=== PATIENT | male | born 1960 | race Caucasian/White ===

== ENCOUNTER 2018-09-02 11:58 | Inpatient (IN) | payer OTHER, MEDICAID ==
[~2018-09-02] VITALS: Ht 91.4 cm; Wt 70.3 kg
--- NOTE | 2018-09-02 12:19 | NUR ---
pt in restroom
[2018-09-02 12:30] VITALS: BP 135/82
--- NOTE | 2018-09-02 12:40 | NUR ---
C/O PRESSURE WOUND TO L BUTTOCKS SINCE JULY THAT HASN'T GOTTEN BETTER. CAREGIVER SEEKING A 2ND OPINION. PT DENIES N/V/D/FEVER. AAOX4 WITH EVEN AND STEADY GAIT; LUNGS CLEAR BL; HR EVEN AND REGULAR; VSS; PATIENT POSITIONED LATERALLLY ON R SIDE FOR COMFORT; BEDRAILS UP X1; BED DOWN. ER MD MADE AWARE OF PT STATUS.
--- NOTE | 2018-09-02 13:15 | NUR ---
URINE COLLECTED AND SENT TO LAB
--- NOTE | 2018-09-02 13:20 | NUR ---
ERMD AT BEDSIDE
--- NOTE | 2018-09-02 14:04 | NUR ---
IDA PARAFFIN MACHINE OPERATOR NURSE STATED THAT WOUND IS LEVEL 3 AND OUTER EDGES ARE UNSTAGEABLE, DRESSING BEING OBTAINED BY WOUND NURSE AT THIS TIME.
--- NOTE | 2018-09-02 14:28 | NUR ---
WOUND PICTURES TAKEN AT THIS TIME
[2018-09-02 14:31] LABS: BASOPHILS # (AUTO) 0.1 K/uL (0.00-0.22); BASOPHILS % (AUTO) 0.6 % (0.0-2.0); EOSINOPHILS # (AUTO) 0.1 K/uL (0-0.4); EOSINOPHILS % (AUTO) 1.1 % (0.0-4.0); HEMATOCRIT 42.5 % (36-52); HEMOGLOBIN 14.7 g/dL (12.0-18.0); LYMPHOCYTES % (AUTO) 12.1 % (20.5-51.1); MEAN CORPUSCULAR HEMOGLOBIN 31 pg (27-31); MEAN CORPUSCULAR HGB CONC 35 g/dL (33-37); MEAN CORPUSCULAR VOLUME 88.5 fL (80-94); MONOCYTES # (AUTO) 0.8 K/uL (0.8-1.0); MONOCYTES % (AUTO) 9.8 % (1.7-9.3); NEUTROPHILS # (AUTO) 6.6 K/uL (1.8-7.7); NEUTROPHILS % (AUTO) 76.4 % (42.2-75.2); PLATELET COUNT (AUTO) 391 K/uL (140-450); RED CELL DISTRIBUTION WIDTH 13.3 % (11.6-13.7); WHITE BLOOD COUNT (AUTO) 8.6 K/uL (4.8-10.8)
[2018-09-02 14:40] LABS: ANION GAP 8.6 (8-16); CARBON DIOXIDE 28.6 mmol/L (21-32); CREATININE 0.5 mg/dL (0.7-1.3); POTASSIUM 4.2 mmol/L (3.5-5.1)
--- NOTE | 2018-09-02 14:48 | NUR ---
9828 RECEIVED A CALL FROM JERARDO RITCHIE PATIENT'S JEWELRY POLISHER AT [facility] PHONE [phone] AND CELL [phone]. PER JERARDO SHE IS HAVING A CLIENT BROUGHT TO THE ED FOR EVALUATION OF A WOUND TO SEE WHAT STAGE THE WOUND IS AT THE [facility] THEY CANNOT HAVE CLIENTS WITH GREATER THAN A STAGE 2 AND PER THE EXECUTIVE SALES MANAGER AT THE FACILITY PATIENTS WOUND IS SUPERFICIAL. INFORMATION ENDORSED TO DR PUGH EDMD. 6550 SPOKE WITH IDA WOUND CARE NURSE AND SHE CONFIRMED THAT PATIENT'S WOUND IS A STAGE 3. INFORMED JERARDO THAT PT'S WOUND IS STAGE 3 AND SHE STATED THAT PATIENT CANNOT GO BACK TO [facility] AND WILL NEED TO GO TO SNF FOR WOUND CARE AND THAT SHE IS REQUESTING [facility]. JERARDO ALSO REQUESTED THAT HER INFORMATION SHOULD BE ON CHART PRIMARY SOURCE OF CONTACT AND NOT PRISONFOOTWEAR MACHINERY INSTRUCTOR BETI. SPOKE WITH DR PUGH AND INFORMED HIM THAT [facility] CANNOT TAKE PATIENT BACK AT THIS TIME.
[2018-09-02 14:49] LABS: ALBUMIN 3.4 g/dL (3.4-5.0); TOTAL BILIRUBIN 0.2 mg/dL (0.0-1.0)
[2018-09-02] MEDS ORDERED: ACETAMINOPHEN 325 MG TAB PO PRN (14:50)
[2018-09-02] MEDS ORDERED: LORazepam 2 MG/ML VIAL IM/IVP PRN (14:50)
[2018-09-02] MEDS ORDERED: DOCUSATE SODIUM 100 MG GELCAP PO PRN (14:50)
[2018-09-02] MEDS ORDERED: ONDANSETRON 4 MG/2 ML VIAL IM/IVP PRN (14:50)
[2018-09-02] MEDS ORDERED: MORPHINE SULFATE 2 MG/ML SYR IVP PRN (14:50)
[2018-09-02] MEDS ORDERED: HYDROcodone/APAP 5/325 MG 1 TAB TAB PO PRN (14:50)
--- NOTE | 2018-09-02 15:30 | NUR ---
Patient will be admitted to care of DR FINK . Admited to MS. Will go to room 115. Belongings list completed. Report to
[2018-09-02 15:47] LABS: MAGNESIUM 2.6 mg/dL (1.8-2.4); PHOSPHORUS 3.6 mg/dL (2.5-4.9); THYROID STIMULATING HORMONE 1.68 uIU/mL (0.34-3.74)
[2018-09-02 15:54] LABS: PROTHROMBIN TIME 10.4 secs (10.8-13.4)
--- NOTE | 2018-09-02 16:00 | NUR ---
PATIENT ARRIVED ON UNIT VIA GURNEY. NO DISTRESS NOTED. DENIES ANY PAIN. AAOX4, CALM, COOPERATIVE. RESPIRATIONS EVEN, UNLABORED, ON ROOM AIR. HAS STAGE III PRESSURE ULCER, DRESSING IS DRY AND INTACT. HAS LEFT ABD URETEROSTOMY IN PLACE, DRAINING CLOUDY URINE, WITH STRONG ODOR. BUE CONTRACTURES NOTED. REVIEWED PLAN OF CARE WITH PATIENT. PATIENT VERBALIZED UNDERSTANDING. ORIENTED PATIENT TO ROOM AND CALL LIGHT. SAFETY MEASURES IN PLACE, CALL LIGHT WITHIN REACH. WILL CONTINUE TO MONITOR.
[2018-09-02 16:15] VITALS: BP 138/77
[2018-09-02] MEDS ORDERED: ASCO-786 PO (16:33)
[2018-09-02] MEDS ORDERED: MONT10TA35 PO (16:33)
[2018-09-02] MEDS ORDERED: BISA-213 RC (16:33)
[2018-09-02] MEDS ORDERED: AZEL137S8 NS (16:33)
[2018-09-02] MEDS ORDERED: MAGN400S60 PO (16:33)
[2018-09-02] MEDS ORDERED: NA P133N1 RC (16:33)
[2018-09-02] MEDS ORDERED: METO25TA14 PO (16:33)
[2018-09-02] MEDS ORDERED: FLUO0.052 TP (16:33)
[2018-09-02] MEDS ORDERED: ALBU0.0912 IH (16:33)
[2018-09-02] MEDS ORDERED: VENL150C1 PO (16:33)
[2018-09-02] MEDS ORDERED: MULT-1869 PO (16:33)
[2018-09-02] MEDS ORDERED: SODI50SP NS (16:33)
[2018-09-02] MEDS ORDERED: OSC500 PO (16:33)
[2018-09-02] MEDS ORDERED: KEN.1C TP (16:33)
[2018-09-02] MEDS ORDERED: POTA10TE30 PO (16:33)
[2018-09-02] MEDS ORDERED: LAM25 PO (16:33)
[2018-09-02] MEDS ORDERED: CETI10TA73 PO (16:34)
[2018-09-02] MEDS ORDERED: CRAN200C3 PO (16:34)
[2018-09-02] MEDS ORDERED: DOCU-300 PO (16:34)
[2018-09-02] MEDS ORDERED: CARB200T4 PO (16:34)
[2018-09-02] MEDS ORDERED: SODI100076 PO (16:34)
[2018-09-02] MEDS ORDERED: FLUT1DSK2 IH (16:34)
[2018-09-02] MEDS ORDERED: SUD30 PO (16:34)
[2018-09-02] MEDS ORDERED: ORE25 PO (16:34)
[2018-09-02] MEDS ORDERED: AMLO5TAB PO (16:34)
[2018-09-02] MEDS ORDERED: ALBUTEROL SULFATE/IPRATROPIU 3 ML SOL IH PRN (16:55)
[2018-09-02 17:05] LABS: APPEARANCE,URINE SL CLOUDY (CLEAR); BILIRUBIN,URINE NEGATIVE (NEGATIVE); BLOOD, URINE NEGATIVE (NEGATIVE); COLOR,URINE YELLOW (YELLOW); LEUKOCYTE ESTERASE ,URINE NEGATIVE (NEGATIVE); NITRITE, URINE POSITIVE (NEGATIVE); UGLUCOSE NEGATIVE (NEGATIVE)
[2018-09-02] MEDS ORDERED: FOAM DRESSING TP PRN (17:20)
[2018-09-02] MEDS: NACL 0.9% 1,000 ML IV SCH (17:27)
--- NOTE | 2018-09-02 17:35 | NUR ---
PATIENT SITTING IN BED WATCHING TV. NO DISTRESS NOTED. DENIES ANY PAIN. IVF STARTED PER MD ORDERS. WILL CONTINUE TO MONITOR.
[2018-09-02] MEDS ORDERED: SODIUM PHOSPHATE 118 ML ENEM RC PRN (17:55)
[2018-09-02] MEDS ORDERED: BISACODYL 10 MG SUPP RC PRN (17:55)
[2018-09-02] MEDS ORDERED: TRIAMCINOLONE 0.1% CRM 15 GM TUBE TP PRN (17:55)
[2018-09-02 18:38] LABS: ANION GAP 8.5 (8-16); CARBON DIOXIDE 31.5 mmol/L (21-32); CREATININE 0.5 mg/dL (0.7-1.3)
[2018-09-02] MEDS: AMPICILLIN/SULBACTAM 1.5 GM in NACL 0.9% 50 ML IV SCH (18:51)
--- NOTE | 2018-09-02 18:57 | NUR ---
PT SITTING WATCHING TV EATING DINNER. ADMINISTERED MEDS. PT TOLERATED WELL. PT ABLE TO MAKE NEEDS KNOWN. PT IN STABLE CONDITION. BED IN LOWEST POSITION. CALL LIGHT WITHIN REACH.
--- NOTE | 2018-09-02 19:15 | NUR ---
GAVE REPORT TO EQUIPMENT OPERATOR/LABORER NURSE FOR CONTINUITY OF CARE. PATIENT IN STABLE CONDITION.
--- NOTE | 2018-09-02 19:25 | NUR ---
RECEIVED FROM AM RN IN BED SITTING UP POSITION. BEDBOUND RT PARAPLEGIC WITH SPINA BIFIDA HX. DX. OF DECUBITUS ULCER TO COCCYX ST#3 . ABLE TO VERBALIZE SIMPLE NEEDS IN DIVEHI. CALL LIGHT WITH IN REACH. CARE PLANS FOR THE NIGHT DISCUSSED WITH HIM. A/O X 4. IVF SITE INTACT AND NO INFILTRATION NOTED TO RAC#20 . PRESENCE OF UROSTOMY TO LEFT ABDOMEN AND DRAINING WELL TO ARBOLEDA BAG.
[2018-09-02 21:31] VITALS: BP 127/75
[2018-09-02] MEDS: lamoTRIgine 25 MG TAB PO SCH (21:33)
[2018-09-02] MEDS: amLODIPine 5 MG TAB PO SCH (21:34)
[2018-09-02] MEDS: METOPROLOL 25 MG TAB PO SCH (21:34)
[2018-09-02] MEDS: DOCUSATE SODIUM 100 MG GELCAP PO SCH (21:34)
[2018-09-02] MEDS: carBAMazepine 200 MG TAB PO SCH (21:35)
--- NOTE | 2018-09-02 21:42 | NUR ---
PT. TURNED BY CNAS AND MADE COMFORTABLE. NO COMPLAINTS OF ANY PAIN AT THIS T JOSE. KEPT DRY AND CLEAN. ALL P.O. MEDICATIONS TOLERATED WELL.
[2018-09-03] MEDS: AMPICILLIN/SULBACTAM 1.5 GM in NACL 0.9% 50 ML IV SCH ×5 (00:45→23:35)
[2018-09-03] MEDS: NACL 0.9% 1,000 ML IV SCH ×3 (01:09→21:05)
--- NOTE | 2018-09-03 01:36 | NUR ---
PT. TRANSFERRED TO A WOUND CARE BED. TOLERATED WELL. NO COMPLAINTS DONE. NO SOB. CALL LIGHT WITH IN REACH.
--- NOTE | 2018-09-03 03:30 | NUR ---
SLEEPING WELL. WAKES UP EASILY. NO COMPLAINTS DONE.
--- NOTE | 2018-09-03 06:52 | NUR ---
PT. AWAKE AT THIS TIME AND ABLE TO VERBALIZE NEEDS WELL. ABLE TO USE CALL LIGHT FOR HELP. TURNED Q 2H. NO COMPLAINTS DONE. OSTOMY BAG INTACT AND DRAINING WELL WITH YELLOW URINE.
--- NOTE | 2018-09-03 07:25 | NUR ---
RECEIVED REPORT FROM MEDICAL TRANSCRIBER NURSE. PATIENT SITTING IN BED, WATCHING TV. NO DISTRESS NOTED. DENIES ANY PAIN. RESPIRATIONS EVEN, UNLABORED, ON ROOM AIR. AAOX4, CALM, COOPERATIVE, SKIN COLOR APPROPRIATE TO ETHNICITY, WARM TO TOUCH. HAS COCCYX ULCER NOTED, DRESSING IS DRY AND INTACT AT THIS TIME. IV SITE INTACT, PATENT, AND INFUSING IVF PER MD ORDERS. HAS LEFT ABD UROSTOMY IN PLACE. SAFETY MEASURES IN PLACE, CALL LIGHT WITHIN REACH. WILL CONTINUE TO MONITOR.
[2018-09-03 08:00] VITALS: BP 146/88
--- NOTE | 2018-09-03 08:18 | NUR ---
PATIENT HAS BEEN SCREENED AND CATEGORIZED HIGH NUTRITION RISK. PATIENT WILL BE SEEN WITHIN 1-2 DAYS OF ADMISSION. 09/03/18-09/04/[address]
[2018-09-03 08:26] LABS: BASOPHILS % (AUTO) 0.9 % (0.0-2.0); EOSINOPHILS # (AUTO) 0.1 K/uL (0-0.4); EOSINOPHILS % (AUTO) 1.4 % (0.0-4.0); HEMATOCRIT 40.8 % (36-52); LYMPHOCYTES # (AUTO) 0.8 K/uL (2.0-11.5); LYMPHOCYTES % (AUTO) 16.5 % (20.5-51.1); MEAN CORPUSCULAR HEMOGLOBIN 31 pg (27-31); MEAN CORPUSCULAR HGB CONC 34 g/dL (33-37); MEAN CORPUSCULAR VOLUME 89.5 fL (80-94); MONOCYTES # (AUTO) 0.5 K/uL (0.8-1.0); NEUTROPHILS # (AUTO) 3.3 K/uL (1.8-7.7); NEUTROPHILS % (AUTO) 71.2 % (42.2-75.2); PLATELET COUNT (AUTO) 383 K/uL (140-450); RED BLOOD CELL COUNT(AUTO) 4.56 MIL/uL (4.20-6.10); RED CELL DISTRIBUTION WIDTH 13.3 % (11.6-13.7); WHITE BLOOD COUNT (AUTO) 4.6 K/uL (4.8-10.8)
[2018-09-03 08:32] LABS: ANION GAP 12.8 (8-16); CARBON DIOXIDE 27.3 mmol/L (21-32); CREATININE 0.5 mg/dL (0.7-1.3); POTASSIUM 4.1 mmol/L (3.5-5.1)
[2018-09-03] MEDS: LORATADINE 10 MG TAB PO SCH (08:37)
[2018-09-03 08:39] LABS: CHOL/HDL RATIO 3.7 (1-4.5)
[2018-09-03] MEDS: lamoTRIgine 25 MG TAB PO SCH ×2 (08:40→21:04)
[2018-09-03] MEDS: MONTELUKAST SODIUM 10 MG TAB PO SCH (08:40)
[2018-09-03] MEDS: amLODIPine 5 MG TAB PO SCH ×2 (08:41→21:05)
[2018-09-03] MEDS: carBAMazepine 200 MG TAB PO SCH ×2 (08:41→21:05)
[2018-09-03] MEDS: LACTOBACILLUS RHAMNOSUS GG 1 EACH CAP PO SCH (08:41)
[2018-09-03] MEDS: CALCIUM CARBONATE 500 MG TAB PO SCH (08:41)
[2018-09-03] MEDS: ASCORBIC ACID 500 MG TAB PO SCH (08:41)
[2018-09-03] MEDS: HYDROCHLOROTHIAZIDE 25 MG TAB PO SCH (08:42)
[2018-09-03] MEDS: MULTIVITAMIN/MINERALS 1 TAB PO SCH (08:42)
[2018-09-03] MEDS: DOCUSATE SODIUM 100 MG GELCAP PO SCH ×2 (08:42→21:04)
--- NOTE | 2018-09-03 08:49 | NUR ---
PATIENT SITTING IN BED WATCHING TV. NO DISTRESS NOTED. DENIES ANY PAIN. SCHEDULED MEDICATIONS DUE GIVEN. WILL CONTINUE TO MONITOR.
[2018-09-03 08:59] LABS: MAGNESIUM 2.3 mg/dL (1.8-2.4); PHOSPHORUS 3.4 mg/dL (2.5-4.9)
[2018-09-03] MEDS ORDERED: VENLAFAXINE XR 75 MG CAPER PO SCH (09:00)
--- NOTE | 2018-09-03 10:00 | NUR ---
DR. LITTLE AT BEDSIDE REVIEWING PLAN OF CARE WITH PATIENT. PER DR. LITTLE, NO SURGERY/DEBRIDEMENT OF WOUND NEEDED. WOUND DRESSING CHANGED PER MD ORDERS AT THIS TIME. WILL CONTINUE TO MONITOR.
[2018-09-03] MEDS: VENLAFAXINE XR 75 MG CAPER PO SCH (10:26)
[2018-09-03] MEDS: SODIUM CHLORIDE 1 GM TAB PO SCH (10:26)
--- NOTE | 2018-09-03 12:34 | NUR ---
PATIENT SITTING IN BED WITH LUNCH TRAY IN FRONT. NO DISTRESS NOTED. DENIES ANY PAIN. SCHEDULED MEDICATIONS DUE GIVEN. WILL CONTINUE TO MONITOR.
--- NOTE | 2018-09-03 14:42 | NUR ---
1310 IZABELLA CHRISTIANSON, RN HEALTH FACILITIES MEDIA PRODUCTION MANAGER NURSE HERE FROM DEPARTMENT OF PUBLIC HEALTH TO INTERVIEW PATIENT REGARDING A COMPLAINT FILED AGAINST THE LONG-TERM THAT PATIENT HAS CURRENTLY BEEN RESIDING AT. CARD WITH CONTACT INFORMATION FILED IN HARD CHART. PHONE [phone] AND FAX [phone] AND CASE # IS [id number].
--- NOTE | 2018-09-03 15:38 | NUR ---
09/03/18 RD INITIAL ASSESSMENT COMPLETED PLEASE REFER TO NUTRITION ASSESSMENT UNDER CARE ACTIVITY FOR ESTIMATED NUTRITIONAL NEEDS. 1. CONTINUE REGULAR DIET TOLERATED 2. PRESSURE ULCER NUTRITION AND FDI EDUCATION WAS PROVIDED TO PT. 3. RD TO FOLLOW-UP 2-3 DAYS, HIGH RISK VINNIE STOCK RD
[2018-09-03 16:00] VITALS: BP 125/82
[2018-09-03] MEDS: TRIAMCINOLONE 0.1% CRM 80 GM TUBE TP PRN (16:11)
--- NOTE | 2018-09-03 16:50 | NUR ---
WOUND CARE EVALUATION NOTE: REASON FOR EVALUATION:SACRALCOCCYX/BUTTOCK WOUNDS SKIN ASSESSMENT DONE WITH PRIMARY RN WITH THIS 58 Y/O MALE PT AD[facility] WITH INITIAL DX SACRAL WOUND EVALUATION. PAST MEDICAL HX INCLUDES HTN, CHRONIC SACRAL WOUND X 6 MONTHS, SPINAL BIFIDA, UROSTOMY, SEIZURE DISORDER, PVD AND DEPRESSION. ALL ABOVE INFORMATION OBTAINED FROM ADMISSION H&P. LABS ARE WBC 4.6, H/H 14.0/40.8, GLUCOSE 102 AND ALBUMIN 3.4. PT IS AWAKE. AAX4, SKIN IS WARM AND WELL HYDRATE, BLE FEW HAIR GROWTH, DORSAL FEET WITH TRACE EDEMA. DORSAL PEDAL PULSES PRESENT AND NORMAL. CAPILLARY REFILLED < 2 SEC. X 10 TOES. INCONTINENT OF BOWEL. DEFORMITY OF LEFT HIP /PELVIC AND SACROCOCCYX AREA. PLAN OF CARE DISCUSSED WITH PRIMARY RN. PT. WAS INITIALLY SEEN BY WOUND CARE NURSE ON 09/02/[address] PARNELL REQUEST FOR SACRALCOCCYX PRESSURE ULCER UN-STAGEABLE AND EXTENDED TO LEFT INNER BUTTOCK (LEFT ISCHIUM) PRESSURE ULCER STAGE 3. INTEGUMENTARY: - LLQ ABDOMEN UROSTOMY STOMA WITH SKIN INTACT FUNCTION WITH CLEAR YELLOW URINE OUTPUT -ABDOMEN SOFT TO TOUCH. MID ABDOMINAL HEALED OLD SCARS. -OLD HEALED SCAR LOWER LUMBAR SPINAL REGION -PRESSURE ULCER UN-STAGEABLE TO SACRALCOCCYX EXTENDED TO LEFT INNER BUTTOCK (LEFT ISCHIUM), ENTIRE WOUND MEASUREMENT IS 12X5CM DEPTH IS UTD WOUND BED WITH 50% YELLOW AND LIGHT BROWN SLOUGH TISSUE AND 50 % GRANULATING SKIN TOWARDS LEFT BUTTOCK AREAS, AREA MOIST, NO ODOR, GRADY WOUND SKIN INTACT WITH SURROUNDING REDNESS INDICATED FURTHER DAMAGE. RECOMMENDATIONS: -CLEANSE PRESSURE ULCER UN-STAGEABLE TO SACRALCOCCYX EXTENDED TO LEFT INNER BUTTOCK (LEFT ISCHIUM), WITH WOUND CLEANSING SOLUTION AND APPLY THERAHONEY GEL COVER WITH OPTIFOAM DRESSING QD AND PRN IF SOILING -APPLY HEEL RAISER TO RIGHT HEEL AT ALL TIMES -OFFLOAD BILATERAL HEELS BY PLACING PILLOWS UNDER CALVES UNLESS OTHERWISE CONTRAINDICATED -PRESSURE REDISTRIBUTION SURFACE THERAPY -TURN AND REPOSITION Q2H, OFFLOAD SACRALCOCCYX AND BUTTOCKS BY TURNING RIGHT AND LEFT -CONTINUE TO FOLLOW RD RECOMMENDATIONS ALL ABOVE RECOMMENDATIONS DISCUSSED WITH PRIMARY RN. WILL FOLLOW UP PT Q7-10 DAYS. PLEASE CONTACT WOUND CARE NURSE FOR ANY QUESTION AND CHANGE OF WOUND CONDITION.
[2018-09-03] MEDS ORDERED: THERAHONEY GEL 42.5 GM TP PRN (18:05)
--- NOTE | 2018-09-03 19:30 | NUR ---
RECEIVED BEDSIDE REPORT FROM LAURIE SANFORD, PATIENT IN BED, AAOX4, ON RA, IV IN RIGHT AC 20 G INFUSING NS AT 100, DRESSING INTACT, FLUSHED 10 ML NS FOR HIGH PRESSURE, NOTED LEFT UROSTOMY BAG DRAINING LIGHT YELLOW URINE, NOTED STAGE 3 ULCER ON PERIANAL AREA, WOUND CARE NURSE SEEN PATIENT TODAY. CONTRACTURES ON LOWER EXTREMITIES. V/S TAKEN ALL STABLE, EXPLAINED PLAN OF CARE WILL CONTINUE TO MONITOR.
--- NOTE | 2018-09-03 19:32 | NUR ---
GAVE REPORT TO MATERIAL ENGINEER NURSE FOR CONTINUITY OF CARE. PATIENT IN STABLE CONDITION.
[2018-09-03] MEDS: METOPROLOL 25 MG TAB PO SCH (21:04)
--- NOTE | 2018-09-03 21:04 | NUR ---
DUE MEDICATIONS GIVEN, EDUCATION PROVIDED, CALL LIGHT WITHIN REACH WILL CONTINUE TO MONITOR.
[2018-09-03] MEDS: SODIUM CHLORIDE 0.65% 45 ML BTL NS PRN (21:05)
--- NOTE | 2018-09-03 23:30 | NUR ---
DUE AMPICILLIN GIVEN
[2018-09-04] VITALS: BP 118/85
--- NOTE | 2018-09-04 02:00 | NUR ---
SLEEPING IN BED NO SIGNS OF DISTRESS WILL CONTINUE TO MONITOR
[2018-09-04] MEDS: AMPICILLIN/SULBACTAM 1.5 GM in NACL 0.9% 50 ML IV SCH ×4 (04:53→22:50)
[2018-09-04] MEDS: SODIUM CHLORIDE 0.65% 45 ML BTL NS PRN ×2 (04:54→20:04)
[2018-09-04] MEDS: NACL 0.9% 1,000 ML IV SCH ×2 (04:54→17:13)
--- NOTE | 2018-09-04 04:59 | NUR ---
REPOSITIONED FOR COMFORT DUE MEDICATIONS GIVEN
--- NOTE | 2018-09-04 07:21 | NUR ---
ENDORSED PATIENT TO DAY SHIFT NURSE, PATIENT STABLE.
--- NOTE | 2018-09-04 07:22 | NUR ---
GOT BEDSIDE REPORT FROM LAURIE SWAIN. PATIENT ON MED SURGE FLOOR AND STANDARD PRECAUTIONS IN PLACE. PATIENT AAOX4 AND ON ROOM AIR, NO DISTRESS NOTED. PRESSURE ULCER ON SACRALCOCCYX, DRESSING CLEAN DRY AND INTACT. IV ON R AC INFUSING NS AT 100, IV ASYMPTOMATIC PATENT AND INTACT. PATIENT WITH L UROSTOMY IN PLACE. FALL RISK PROTOCOL IN PLACE. BED IN LOW POSITION, CALL LIGHT WITHIN REACH, SIDE RAILS X2 UP
[2018-09-04 07:46] LABS: BASOPHILS % (AUTO) 0.7 % (0.0-2.0); EOSINOPHILS # (AUTO) 0.1 K/uL (0-0.4); EOSINOPHILS % (AUTO) 1.4 % (0.0-4.0); HEMATOCRIT 42.6 % (36-52); HEMOGLOBIN 14.7 g/dL (12.0-18.0); LYMPHOCYTES # (AUTO) 0.8 K/uL (2.0-11.5); LYMPHOCYTES % (AUTO) 16.7 % (20.5-51.1); MEAN CORPUSCULAR HEMOGLOBIN 31 pg (27-31); MEAN CORPUSCULAR HGB CONC 35 g/dL (33-37); MEAN CORPUSCULAR VOLUME 89.9 fL (80-94); MONOCYTES # (AUTO) 0.5 K/uL (0.8-1.0); MONOCYTES % (AUTO) 10.5 % (1.7-9.3); NEUTROPHILS # (AUTO) 3.4 K/uL (1.8-7.7); NEUTROPHILS % (AUTO) 70.7 % (42.2-75.2); PLATELET COUNT (AUTO) 379 K/uL (140-450); RED BLOOD CELL COUNT(AUTO) 4.74 MIL/uL (4.20-6.10); RED CELL DISTRIBUTION WIDTH 13.4 % (11.6-13.7); WHITE BLOOD COUNT (AUTO) 4.9 K/uL (4.8-10.8)
[2018-09-04 08:00] VITALS: BP 137/86
[2018-09-04 08:14] LABS: ANION GAP 11.9 (8-16); CREATININE 0.5 mg/dL (0.7-1.3); POTASSIUM 3.9 mmol/L (3.5-5.1)
[2018-09-04 08:52] LABS: MAGNESIUM 2.2 mg/dL (1.8-2.4); PHOSPHORUS 3.5 mg/dL (2.5-4.9)
[2018-09-04] MEDS: SODIUM CHLORIDE 1 GM TAB PO SCH (09:00)
[2018-09-04] MEDS: DOCUSATE SODIUM 100 MG GELCAP PO SCH ×2 (09:44→20:03)
[2018-09-04] MEDS: LORATADINE 10 MG TAB PO SCH (09:44)
[2018-09-04] MEDS: MAGNESIUM HYDROXIDE 2400 MG/30 ML UDC PO SCH (09:44)
[2018-09-04] MEDS: LACTOBACILLUS RHAMNOSUS GG 1 EACH CAP PO SCH (09:45)
[2018-09-04] MEDS: HYDROCHLOROTHIAZIDE 25 MG TAB PO SCH (09:45)
[2018-09-04] MEDS: ASCORBIC ACID 500 MG TAB PO SCH (09:46)
[2018-09-04] MEDS: MULTIVITAMIN/MINERALS 1 TAB PO SCH (09:46)
[2018-09-04] MEDS: lamoTRIgine 25 MG TAB PO SCH ×2 (09:47→20:03)
[2018-09-04] MEDS: VENLAFAXINE XR 75 MG CAPER PO SCH (09:48)
[2018-09-04] MEDS: amLODIPine 5 MG TAB PO SCH ×2 (09:48→20:03)
[2018-09-04] MEDS: carBAMazepine 200 MG TAB PO SCH ×2 (09:49→20:03)
[2018-09-04] MEDS: MONTELUKAST SODIUM 10 MG TAB PO SCH (09:49)
[2018-09-04] MEDS: CALCIUM CARBONATE 500 MG TAB PO SCH (09:49)
--- NOTE | 2018-09-04 10:01 | NUR ---
ADMINISTERED SCHEDULED MEDS. PATIENT TOLERATED WELL
--- NOTE | 2018-09-04 12:00 | NUR ---
PATIENT TURNED TO SIDE REQUESTED, ON ROOM AIR, NO DISTRESS NOTED
[2018-09-04] MEDS: THERAHONEY GEL 42.5 GM TP SCH (13:29)
--- NOTE | 2018-09-04 14:31 | NUR ---
GAVE BEDSIDE REPORT TO LAURIE GOULD. PATIENT ENDORSED IN STABLE CONDITION
--- NOTE | 2018-09-04 14:32 | NUR ---
RECEIVED REPORT FROM LAURIE CHAVARRIA. PT ON FALL RISK, SEIZURE PRECAUTION. INTRODUCED SELF TO THE PT. CALL LIGHT WITHIN PT REACH. INFORMED TO USE CALL LIGHT FOR ANY HELP. WILL CONTINUE TO MONITOR PT.
--- NOTE | 2018-09-04 15:51 | NUR ---
CHECKED ON PT. VS NOTED. CHECKED ON THE DRESSING ON RT BUTTOCK, DRY AND INTACT. DENIES ANY PAIN. ALL SAEFTY MEASURE IN PLACE. EMPTIED THE ARBOLEDA BAG, 1200 OUTPUT. NO DISTRESS NOTED. WILL CONTINUE TO MONITOR PT.
[2018-09-04 16:00] VITALS: BP 139/89
--- NOTE | 2018-09-04 17:22 | NUR ---
ADMINISTERED MEDS TO PT ORDERED. PT TOLERATED WELL. RESTING WELL IN HIS BED. ALL SAFETY MEASURE IN PLACE. WILL CONTINUE TO MONITOR PT.
--- NOTE | 2018-09-04 19:10 | NUR ---
ENDORSED PT TO PM NURSE AT BEDSIDE. PT IN STABLE CONDITION.
--- NOTE | 2018-09-04 19:30 | NUR ---
RECEIVED BEDSIDE REPORT FROM DAY SHIFT RN, PATIENT IN BED, AAOX4, ON RA, IV IN RIGHT AC 20 G INFUSING NS AT 100, DRESSING INTACT, FLUSHED 10 ML NS FOR HIGH PRESSURE, NOTED LEFT UROSTOMY BAG DRAINING LIGHT YELLOW URINE, NOTED STAGE 3 ULCER ON PERIANAL AREA, DRESSING INTACT. CONTRACTURES ON LOWER EXTREMITIES NOTED. V/S TAKEN ALL STABLE, EXPLAINED PLAN OF CARE WILL CONTINUE TO MONITOR.
--- NOTE | 2018-09-04 20:03 | NUR ---
DUE MEDICATIONS GIVEN, EDUCATION PROVIDED, WILL CONTINUE TO MONITOR
[2018-09-04] MEDS: METOPROLOL 25 MG TAB PO SCH (20:04)
--- NOTE | 2018-09-04 22:11 | NUR ---
SLEEPING IN BED NO SIGNS OF DISTRESS
--- NOTE | 2018-09-04 23:40 | NUR ---
V/S STABLE PATIENT DENIES PAIN
[2018-09-05] VITALS: BP 141/81
--- NOTE | 2018-09-05 01:18 | NUR ---
PATIENT SLEEPING IN BED NO SIGNS OF DISTRESS
[2018-09-05] MEDS: NACL 0.9% 1,000 ML IV SCH ×2 (03:07→13:09)
--- NOTE | 2018-09-05 03:44 | NUR ---
PATIENT SLEEPING IN BED NO SIGNS OF DISTRESS
[2018-09-05] MEDS: AMPICILLIN/SULBACTAM 1.5 GM in NACL 0.9% 50 ML IV SCH ×3 (05:04→18:42)
--- NOTE | 2018-09-05 05:19 | NUR ---
DUE ANTIBIOTIC GIVEN
[2018-09-05] MEDS: SODIUM CHLORIDE 0.65% 45 ML BTL NS PRN (06:29)
--- NOTE | 2018-09-05 07:35 | NUR ---
ENDORSED PATIENT TO DAY SHIFT NURSE.
[2018-09-05 08:56] LABS: BASOPHILS % (AUTO) 0.6 % (0.0-2.0); EOSINOPHILS # (AUTO) 0.1 K/uL (0-0.4); EOSINOPHILS % (AUTO) 1.1 % (0.0-4.0); HEMATOCRIT 44.4 % (36-52); HEMOGLOBIN 15.1 g/dL (12.0-18.0); LYMPHOCYTES # (AUTO) 0.9 K/uL (2.0-11.5); LYMPHOCYTES % (AUTO) 14.8 % (20.5-51.1); MEAN CORPUSCULAR HEMOGLOBIN 31 pg (27-31); MEAN CORPUSCULAR HGB CONC 34 g/dL (33-37); MEAN CORPUSCULAR VOLUME 90.1 fL (80-94); MONOCYTES # (AUTO) 0.5 K/uL (0.8-1.0); MONOCYTES % (AUTO) 8.7 % (1.7-9.3); NEUTROPHILS # (AUTO) 4.4 K/uL (1.8-7.7); NEUTROPHILS % (AUTO) 74.8 % (42.2-75.2); PLATELET COUNT (AUTO) 389 K/uL (140-450); RED BLOOD CELL COUNT(AUTO) 4.93 MIL/uL (4.20-6.10); RED CELL DISTRIBUTION WIDTH 13.6 % (11.6-13.7); WHITE BLOOD COUNT (AUTO) 5.8 K/uL (4.8-10.8)
[2018-09-05] MEDS ORDERED: FOAM DRESSING TP SCH (09:00)
[2018-09-05 09:37] LABS: ANION GAP 14.4 (8-16); CARBON DIOXIDE 26.5 mmol/L (21-32); CREATININE 0.5 mg/dL (0.7-1.3); POTASSIUM 3.9 mmol/L (3.5-5.1)
[2018-09-05] MEDS: LORATADINE 10 MG TAB PO SCH (10:14)
[2018-09-05] MEDS: DOCUSATE SODIUM 100 MG GELCAP PO SCH ×2 (10:15→21:33)
[2018-09-05] MEDS: HYDROCHLOROTHIAZIDE 25 MG TAB PO SCH (10:15)
[2018-09-05] MEDS ORDERED: BISACODYL 10 MG SUPP RC SCH (10:15)
[2018-09-05] MEDS: amLODIPine 5 MG TAB PO SCH ×2 (10:16→21:33)
[2018-09-05] MEDS: MULTIVITAMIN/MINERALS 1 TAB PO SCH (10:17)
[2018-09-05] MEDS: VENLAFAXINE XR 75 MG CAPER PO SCH (10:17)
[2018-09-05] MEDS: lamoTRIgine 25 MG TAB PO SCH ×2 (10:17→21:33)
[2018-09-05] MEDS: MONTELUKAST SODIUM 10 MG TAB PO SCH (10:17)
[2018-09-05] MEDS: carBAMazepine 200 MG TAB PO SCH ×2 (10:18→21:34)
[2018-09-05] MEDS: ASCORBIC ACID 500 MG TAB PO SCH (10:18)
[2018-09-05] MEDS: CALCIUM CARBONATE 500 MG TAB PO SCH (10:18)
[2018-09-05] MEDS: LACTOBACILLUS RHAMNOSUS GG 1 EACH CAP PO SCH (10:18)
[2018-09-05] MEDS: SODIUM CHLORIDE 1 GM TAB PO SCH (10:19)
[2018-09-05] MEDS: THERAHONEY GEL 42.5 GM TP SCH (10:21)
[2018-09-05 11:39] VITALS: BP 122/81
--- NOTE | 2018-09-05 13:54 | NUR ---
RECEIVED ORDER FOR TRANSFER TO [facility], [facility], TOMORROW. FAXED INQUIRY TO [facility], PHONE [phone].
--- NOTE | 2018-09-05 14:00 | NUR ---
RECEIVED REPORT FROM [facility] FOR CONTINUITY OF CARE. PT IS STABLE IN BED WITH NO APPARENT DISTRESS. ALL SAFETY MEASURES ARE IN PLACE. WILL CONTINUE TO MONITOR.
--- NOTE | 2018-09-05 15:58 | NUR ---
RECEIVED A CALL FROM ZHOU FROM [facility]. THEY CAN TAKE THE PATIENT TOMORROW, EVEN IF WE DON'T HAVE THE FINAL MICRO. HE CAN GO TO ROOM 117[address] UNDER DR. JARVIS. THEY WILL ARRANGE TRANSPORT. CALL [facility] TOMORROW WHEN WE GET THE DISCHARGE ORDER.
[2018-09-05 16:00] VITALS: BP 142/84
--- NOTE | 2018-09-05 16:00 | NUR ---
FREQUENT ROUNDING ON PATIENT. PT IS STABLE AND APPEARS IN NO APPARENT DISTRESS. ALL SAFETY MEASURES ARE IN PLACE. WILL CONTINUE TO MONITOR.
--- NOTE | 2018-09-05 18:00 | NUR ---
FREQUENT ROUNDING PT IS STABLE AND IN NO APPARENT DISTRESS. ALL SAFETY MEASURES ARE IN PLACE. WILL CONTINUE TO MONITOR.
--- NOTE | 2018-09-05 19:30 | NUR ---
ENDORSED PT TO SENIOR INTERNAL AUDITOR NURSE. PT IS STABLE AND IN NO APPARENT DISTRESS. ALL SAFETY MEASURES ARE IN PLACE.
--- NOTE | 2018-09-05 20:58 | NUR ---
RECEIVED PATIENT ON ROOM AIR, PULSE OX SAT 97%. PATIENT DENIES SOB. PRN BREATHING TX NOT INDICATED AT THIS TIME. NO RESPIRATORY DISTRESS NOTED. WILL CONTINUE TO MONITOR.
--- NOTE | 2018-09-05 21:30 | NUR ---
RECEIVED REPORT FROM DAY SHIFT RN, PATIENT STABLE AT THIS TIME, NO SIGNS OF DISTRESS NOTED ON RA. SAFETY PRECAUTIONS IN PLACE. WILL CONTINUE TO MONITOR. Addendum: 09/05/18 at 0923 by Xochilt Almanzar RN REPORT OCCURRED AT 1930, NO 7070. ERROR ON TIME ENTRY
[2018-09-05] MEDS: METOPROLOL 25 MG TAB PO SCH (21:33)
--- NOTE | 2018-09-05 21:33 | NUR ---
ADMINISTERED SCHEDULED MEDICATION. PATIENT TOLERATED WELL. NO SIGNS OF DISTRESS ON RA. POSITION PATIENT FOR COMFORT. CALL LIGHT IN REACH AND SAFETY PRECAUTIONS IN PACE. WILL CONTINUE TO MONITOR.
--- NOTE | 2018-09-05 23:00 | NUR ---
PREMIUM NOTE INTEREST CALCULATOR CLERK OFFERED TO REPOSITION PATIENT. PATIENT REFUSED. I EDUCATED PATIENT ON THE NEED TO REPOSITION FREQUENTLY, HE SAID "I AM COMFORTABLE AND WANT TO SLEEP."
[2018-09-06] VITALS: BP 125/81
[2018-09-06] MEDS: AMPICILLIN/SULBACTAM 1.5 GM in NACL 0.9% 50 ML IV SCH (00:40)
[2018-09-06] MEDS: NACL 0.9% 1,000 ML IV SCH ×2 (00:41→09:09)
--- NOTE | 2018-09-06 00:51 | NUR ---
ADMINISTERED SCHEDULED MEDICATIONS. PATIENT TOLERATED WELL. OFFERED TO REPOSITION PATIENT AND PATIENT REFUSED. WILL CONTINUE TO OFFER TO ASSIST IN REPOSITIONING.
--- NOTE | 2018-09-06 03:06 | NUR ---
PATIENT SLEEPING, NO SIGNS OF DISTRESS. SAFETY PRECAUTIONS IN PLACE.
--- NOTE | 2018-09-06 05:10 | NUR ---
PATIENT INITIALLY REFUSED MORNING CARE. I EDUCATED HIM ON THE NEED TO REPOSITION OFTEN, AND THAT I NEEDED TO ASSESS HIS DRESSING ON HIS SACRAL WOUND. PATIENT ALLOWED BOARDINGHOUSE KEEPER'S TO REPOSITION HIM AND FOR ME TO ASSESS HIS WOUND/DRESSING. DRESSING WAS CLEAN DRY AND INTACT WITH NO SIGNS OF DRAINAGE.
--- NOTE | 2018-09-06 06:40 | NUR ---
PATIENT IV SITE IS LEAKING AND HAS BEEN DISCONTINUED. WILL ENDORSE TO DAY SHIFT TO INSERT NEW IV.
--- NOTE | 2018-09-06 07:20 | NUR ---
ENDORSED PATIENT CARE AND INSERTION OF NEW IV TO DAY SHIFT RN. PATIENT IN STABLE CONDITION WITH SAFETY PRECAUTIONS IN PLACE.
--- NOTE | 2018-09-06 07:21 | NUR ---
RECEIVED BEDSIDE REPORT FROM NIGHTSHIFT RN. PT AWAKE AND ALERT X4. PT ON ROOM AIR. NO SIGNS OF RESP DISTRESS. SACRAL PRESSURE ULCER WOUND. PT IS ON WOUND BED. DRESSING IS CLEAN AND DRY. UROSTOMY CLEAN DRY AND INTACT. PT IS INCONTINENT. NO IV IN PLACE AT THE MOMENT. BEDBOUND. FALL RISK PREC IN PLACE. PT IN STABLE CONDITION. BED IN LOWEST POSITION. CALL LIGHT WITHIN REACH. ABLE TO MAKE NEEDS KNOWN.
[2018-09-06 08:00] VITALS: BP 137/62
[2018-09-06 08:20] LABS: ANION GAP 10.5 (8-16); CARBON DIOXIDE 27.2 mmol/L (21-32); CREATININE 0.5 mg/dL (0.7-1.3); POTASSIUM 3.7 mmol/L (3.5-5.1)
[2018-09-06 08:27] LABS: MAGNESIUM 2.3 mg/dL (1.8-2.4); PHOSPHORUS 3.5 mg/dL (2.5-4.9)
[2018-09-06 08:34] LABS: BASOPHILS % (AUTO) 0.7 % (0.0-2.0); EOSINOPHILS # (AUTO) 0.1 K/uL (0-0.4); EOSINOPHILS % (AUTO) 1.5 % (0.0-4.0); HEMATOCRIT 42.2 % (36-52); HEMOGLOBIN 14.5 g/dL (12.0-18.0); LYMPHOCYTES # (AUTO) 0.9 K/uL (2.0-11.5); LYMPHOCYTES % (AUTO) 16.4 % (20.5-51.1); MEAN CORPUSCULAR HEMOGLOBIN 31 pg (27-31); MEAN CORPUSCULAR HGB CONC 34 g/dL (33-37); MEAN CORPUSCULAR VOLUME 89.8 fL (80-94); MONOCYTES # (AUTO) 0.5 K/uL (0.8-1.0); MONOCYTES % (AUTO) 9.8 % (1.7-9.3); NEUTROPHILS # (AUTO) 3.7 K/uL (1.8-7.7); NEUTROPHILS % (AUTO) 71.6 % (42.2-75.2); PLATELET COUNT (AUTO) 347 K/uL (140-450); RED CELL DISTRIBUTION WIDTH 13.4 % (11.6-13.7); WHITE BLOOD COUNT (AUTO) 5.2 K/uL (4.8-10.8)
[2018-09-06] MEDS ORDERED: PIPE1PDS26 IV (08:40)
[2018-09-06] MEDS ORDERED: Foam Dressing TP ×2 (08:40)
[2018-09-06] MEDS ORDERED: LACT10CA PO (08:40)
[2018-09-06] MEDS ORDERED: Therahoney Gel TP ×2 (08:40)
--- NOTE | 2018-09-06 09:00 | NUR ---
PATIENT SITTING IN BED. NO SIGNS OF DISTRESS. WILL CONTINUE TO MONITOR THE PATIENT
--- NOTE | 2018-09-06 09:04 | NUR ---
FAXED ORDER AND PRELIM SACRAL CULTURE TO [facility] [phone] PHONE [phone]
[2018-09-06] MEDS: VENLAFAXINE XR 75 MG CAPER PO SCH (09:48)
[2018-09-06] MEDS: lamoTRIgine 25 MG TAB PO SCH (09:49)
[2018-09-06] MEDS: HYDROCHLOROTHIAZIDE 25 MG TAB PO SCH (09:51)
[2018-09-06] MEDS: MULTIVITAMIN/MINERALS 1 TAB PO SCH (09:51)
[2018-09-06] MEDS: CALCIUM CARBONATE 500 MG TAB PO SCH (09:52)
[2018-09-06] MEDS: ASCORBIC ACID 500 MG TAB PO SCH (09:52)
[2018-09-06] MEDS: carBAMazepine 200 MG TAB PO SCH (09:53)
[2018-09-06] MEDS: DOCUSATE SODIUM 100 MG GELCAP PO SCH (09:53)
[2018-09-06] MEDS: LORATADINE 10 MG TAB PO SCH (09:53)
[2018-09-06] MEDS: MONTELUKAST SODIUM 10 MG TAB PO SCH (09:54)
[2018-09-06] MEDS: MAGNESIUM HYDROXIDE 2400 MG/30 ML UDC PO SCH (09:54)
[2018-09-06] MEDS: amLODIPine 5 MG TAB PO SCH (09:54)
[2018-09-06] MEDS: LACTOBACILLUS RHAMNOSUS GG 1 EACH CAP PO SCH (09:56)
[2018-09-06] MEDS: SODIUM CHLORIDE 1 GM TAB PO SCH (10:01)
--- NOTE | 2018-09-06 10:08 | NUR ---
ADMINISTERED MEDS TO PT. TOLERATED WELL. EDUCATED ON SIDE EFFECTS. PT VERBALIZE UNDERSTANDING. WILL CONTINUE TO MONITOR.
--- NOTE | 2018-09-06 10:42 | NUR ---
[facility] . PATIENT TO GO TO ROOM 224C UNDER DR. JARVIS. HE ARRANGE PICKUP BY SUDHA, AT BETWEEN 3PM AND 4PM. GIOVANNA RN AND YASSINE GENERALIST NURSE AWARE.
[2018-09-06] MEDS ORDERED: PIPER/TAZO 3.375GM/D5W PREMIX 50 ML IV SCH (12:00)
[2018-09-06] MEDS: THERAHONEY GEL 42.5 GM TP SCH (12:11)
[2018-09-06] MEDS: TRIAMCINOLONE 0.1% CRM 80 GM TUBE TP PRN (12:11)
--- NOTE | 2018-09-06 12:14 | NUR ---
PT LAYING IN BED WATCHING TV. ADMINISTERED MEDS. PT TOLERATED WELL. EDUCATED ON SIDE EFFECTS. VERBALIZED UNDERSTANDING. NO COMPLAINTS AT THIS TIME. DENIES PAIN. BED IN LOWEST POSITION. CALL LIGHT WITHIN REACH. WILL CONTINUE TO MONITOR.
--- NOTE | 2018-09-06 14:02 | NUR ---
PATIENT SITTING IN BED. NO SIGNS OF DISTRESS. WILL CONTINUE TO MONITOR THE PATIENT.
--- NOTE | 2018-09-06 15:00 | NUR ---
GAVE TELEPHONE REPORT TO LAURIE EWING. ANSWERED ALL QUESTIONS AT THIS TIME. CALL BACK NUMBER WAS GIVEN
--- NOTE | 2018-09-06 15:30 | NUR ---
EDUCATED PATIENT ON DISEASE PROCESS, ABN S/SX, WHEN TO GO TO THE ER, EDUCATED ON FOLLOW UP W DR JARVIS, EDUCATED ON WOUND CARE, GAVE PATIENT SUPPLIES FOR WOUND CARE, EDUCATED ON MEDS, MEDS SENT TO [facility], PNA AND FLU VACCINE UP TO DATE. PATIENT LEAVING W UROSTOMY INTACT, IV ON L HAND 24G FOR IV ANTIBIOTICS. PATIENT SIGNED ALL PAPERWORK AND WOUND PHOTOGRAPHS TAKEN. PATIENT LEFT IN STABLE CONDITION
== END 2018-09-06 15:30 | DRG 602 ==
LOC: MED 11:58 → MTU 14:54
PROVIDERS: ADMIT General Practice; ATTEND General Practice
DX: L03.317 Cellulitis of buttock (principal); L89.153 Pressure ulcer of sacral region, stage 3; E87.1 Hypo-osmolality and hyponatremia; G82.20 Paraplegia, unspecified; K43.5 Parastomal hernia without obstruction or gangrene; G40.909 Epilepsy, unspecified, not intractable, without status epilepticus; E83.41 Hypermagnesemia; B96.5 Pseudomonas (aeruginosa) (mallei) (pseudomallei) as the cause of diseases classified elsewhere; I10 Essential (primary) hypertension; M41.9 Scoliosis, unspecified; F32.9 Major depressive disorder, single episode, unspecified; I73.9 Peripheral vascular disease, unspecified; Z74.01 Bed confinement status; Q05.9 Spina bifida, unspecified; Z88.1 Allergy status to other antibiotic agents; Z79.899 Other long term (current) drug therapy
CPT/HCPCS: 36415; 71045; 80048; 80053; 81003; 83036; 83690; 83735; 83880; 84100; 84443; 84484; 85025; 85610; 85730; 87070; 87075; 87081; 87186; 87205; 99285; J0295; J1644; J2405; J2543; J7030; J7620